=== PATIENT | male | born 1965 | race Caucasian/White ===

== ENCOUNTER 2016-11-26 08:50 | Outpatient (CLI) | payer MEDICARE ==
[~2016-11-26] VITALS: Ht 167.6 cm; Wt 62.1 kg
--- NOTE | ~2016-11-26 | OR ---
PATIENT'S NAME: [facility] AGE: 51 Y [address] ROOM: [place] [id number] LOCATION: GPCU ADMIT DATE: 11/26/2016 OR/Procedure Report DISCHARGE DATE: 11/26/2016 FAMILY PHYSICIAN: Elpidio Najera MD ATTENDING PHYSICIAN: Horace Vidal SURGEON: Horace Vidal MD ETL CONSULTANT: DATE OF PROCEDURE: 11/26/2016 PREOPERATIVE DIAGNOSIS: Poorly functioning arteriovenous fistula. POSTOPERATIVE DIAGNOSIS: Outflow vein stenosis. LINE FIXER: [facility] [employer] staff. ANESTHESIA: MAC local. ESTIMATED BLOOD LOSS: 10 mL. OPERATIVE FINDINGS: Three outflow vein stenoses which were angioplastied. DESCRIPTION OF PROCEDURE: The patient was brought into the [facility], placed supine on the fish farm laborer table, prepped and draped in a sterile manner. Preoperative time-out was performed. The patient received preoperative antibiotics. We used an ultrasound guidance to gain access to the fistula. We infiltrated 1% lidocaine followed by a micropuncture needle followed by a micropuncture sheath. We then exchanged using Seldinger technique for a 4- Pashto short sheath. We then performed a series of fistulogram. When we did so, there were 3 distinct areas of high-grade stenoses along the outflow vein tract. We had to use a 0.035 Glidewire to cross these lesions, and we exchanged using a 4-Pashto straight cath to an 0.[address] wire. We then proceeded to angioplasty. After administering 5000 units of heparin, which was reversed at the end of the case with protamine. We angioplastied initially with a 7 x 4 and then finally with an 8 x 40 Tomy balloon. There was then improvement in the thrill in the fistula. Heparin was reversed and we then removed the sheath and used a single 4-0 nylon to seal the puncture site. This is the 2nd time this patient has had a fistulogram. He will likely need a new access if these stenoses continue to occur. The patient tolerated the procedure well and transferred to the recovery room and then home later that day. HORACE VIDAL MD PATIENT'S NAME: [facility] AGE: 51 Y [address] ROOM: [place] [id number] LOCATION: GPCU ADMIT DATE: 11/26/2016 OR/Procedure Report DISCHARGE DATE: 11/26/2016 FAMILY PHYSICIAN: Elpidio Najera MD ATTENDING PHYSICIAN: Horace Vidal/erikal /[id number] d: 11/26/162022 t: 11/29/161810, OPERATIVE SUMMARY
[~2016-11-26 08:50] MED LIST: APRESOLINE25 MG PO; ASPIR 8181 MG PO; BENEFIBER)(NUTR1 PKT PO; CALCIUM ACETAT667 MG PO; COREG25 MG PO; FIBER500 MG PO; HUMALOG100 UNIT/3 SUB-Q; LANTUS (IN100 UNIT/M SUB-Q; LASIX40 MG PO; LOVASTATIN40 MG PO; NIFEREX-150 FOR1 CAP PO; NITROSTAT0.4 MG SL; NORVASC10 MG PO; PLAVIX75 MG PO; PRAVACHOL40 MG PO; ROCALTROL0.25 MCG PO; TOUJEO SOL300 UNIT/1 SUB-Q; TYLENOL325 MG PO
== END 2016-11-26 15:10 | disposition disaster alternative care site (69) ==
LOC: GCAT 08:50 → GPCU 08:51 → GPOC 09:00 → GCAT 15:10
PROC: B30JYZZ Plain Radiography of Left Upper Extremity Arteries using Other Contrast (ICD-10-PCS; principal; 2016-11-26)
DX: T82.9XXA Unspecified complication of cardiac and vascular prosthetic device, implant and graft, initial encounter (principal)
CPT/HCPCS: C1725; C1769; C1887; J0690; J1644; J2001; J2250; J2720; J3010; J7030

== ENCOUNTER → 2017-01-07 | Outpatient (CLI) | payer MEDICARE | END | disposition disaster alternative care site (69) | LOC: GRAD 14:43 | DX: J92.9 Pleural plaque without asbestos (principal); J98.4 Other disorders of lung; R05 Cough; R91.8 Other nonspecific abnormal finding of lung field ==

== ENCOUNTER → 2017-03-06 | Outpatient (CLI) | payer MEDICARE | END | disposition disaster alternative care site (69) | LOC: GRAD 03-05 13:00 | DX: J92.9 Pleural plaque without asbestos (principal); K80.20 Calculus of gallbladder without cholecystitis without obstruction; J98.4 Other disorders of lung; R05 Cough ==